=== PATIENT | female | born 1990 | race Caucasian/White ===

== ENCOUNTER → 2020-12-02 08:45 | Outpatient (CLI) | payer OTHER, SELFPAY ==
[2020-12-02 09:56] LABS: Add Manual Diff / Slide Review NO; Basophils Absolute Auto 0 /uL (0-100); Basophils Percent Auto 0.5 % (0-2); Eosinophils Absolute Auto 100 /uL (0-450); Eosinophils Percent Auto 0.6 % (2-4); Hematocrit 40.5 % (36-46); Hemoglobin 13.3 g/dL (12.0-16.0); Lymphocytes Absolute Auto 1800 /uL (1100-4500); Lymphocytes Percent Auto 22.4 % (25-40); Mean Corpuscular HGB Conc 32.9 % (30-36); Mean Corpuscular Hemoglobin 31.6 PG (26-34); Mean Corpuscular Volume 95.8 fL (80-100); Monocytes Absolute Auto 500 /uL (0-900); Monocytes Percent Auto 6.1 % (3-14); Neutrophils Absolute Auto 5700 /uL (1500-7000); Neutrophils Percent Auto 70.4 % (50-75); Platelet Count 303 X10^3/uL (150-400); Red Blood Cell Count 4.22 X10^6/uL (4.0-5.2); Red Cell Distribution Width 13.7 % (11.6-14.8); White Blood Cell Count 8.1 X10^3/uL (4.5-11.0)
[2020-12-02 10:07] LABS: Alanine Aminotransferase 33 IU/L (<35); Albumin 4.4 g/dL (3.5-5.0); Albumin Globulin Ratio 1.5 (1.0-2.8); Alkaline Phosphatase 74 U/L (38-126); Aspartate Aminotransferase 28 IU/L (14-36); BUN Creatinine Ratio 18.2 (6-22); Bilirubin Total 0.3 mg/dL (0.2-1.3); Blood Urea Nitrogen 12 mg/dL (7-17); Calcium 9.1 mg/dL (8.4-10.2); Carbon Dioxide 27 mmol/L (22-32); Chloride 105 mmol/L (98-107); Cholesterol 150 mg/dL (140-199); Estimated Glomerular Filt Rate > 60.0 mL/min (>60); Glucose 103 mg/dL (70-100); HDL Cholesterol 67 mg/dL (40-60); HEMOLYSIS < 15 (0-50); LDL Cholesterol Calculated 59 mg/dL (<100); Potassium 4.2 mmol/L (3.4-5.1); Sodium 137 mmol/L (137-145); Total Protein 7.4 g/dL (6.3-8.2); Triglycerides 121 mg/dL (35-150)
== END ==
PROVIDERS: PCP Family Medicine; Referring Provider Registered Nurse; Visit Provider Registered Nurse
DX: Z30.41 Encounter for surveillance of contraceptive pills (principal); Z79.899 Other long term (current) drug therapy
CPT/HCPCS: 36415; 80053; 80061; 85025

== ENCOUNTER → 2021-11-06 07:31 | Outpatient (CLI) | payer OTHER, SELFPAY ==
--- NOTE | 2021-11-06 07:33 | DI.US.S_ITS ---
PROCEDURE: US PELVIC COMPLETE INDICATIONS: ABNORMAL MENSES AND INTENSE CRAMPING WITH MENSES. TECHNIQUE: Real-time scanning was performed of the pelvic organs, with image documentation. Additional endovaginal scanning was necessary due to incomplete visualization of the adnexal and endometrial structures by transabdominal scanning. COMPARISON: None. FINDINGS: Uterus: Uterus is anteverted and normal in size at 6.2 x 3.7 x 2.6 cm. The myometrium is heterogeneous. No cystic change. The endometrium measures 3 mm combined thickness. Trace fluid in the endometrial canal. No fibroids identified. There is somewhat prominent vasculature at the lower uterine segment/cervix. Ovaries: The right ovary measures 2.5 x 1.6 x 1.2 cm, with a calculated ovarian volume of 3 cc. The left ovary measures 2.1 x 1.9 x 1.1 cm, with a calculated ovarian volume of 2 cc. The ovaries have a normal sonographic appearance. Less than 12 follicles can be seen in each ovary. No adnexal masses are seen. Other: No pathologic free abdominal or pelvic fluid. IMPRESSION: 1. No endometrial thickening. Endometrium measures 3 mm. 2. The myometrial echotexture is heterogeneous. This finding is nonspecific but could be seen in adenomyosis. Consider pelvic MRI for further evaluation. 3. Ovaries are within normal limits. We strive to produce accurate, complete, and clear reports of imaging services. To assist us in improving patient care, this report was composed using standard report templates and voice recognition software. Therefore, it may contain abnormal punctuation, insertions and/or omissions. Occasional wrong-word or sound-alike substitutions may occur. Though we review the report and make efforts to correct it, we do recommend that the report be read carefully in proper context to recognize any text inaccuracies. Dictated by: Manuelito Zhang M.D. on 11/06/2021 at 9:59 Approved by: Manuelito Zhang M.D. on 11/06/2021 at 10:17
[2021-11-06 14:39] LABS: Appearance Urine UA CLEAR; Bilirubin Urine UA NEGATIVE (NEGATIVE); Color Urine UA YELLOW; Glucose Urine UA NEGATIVE (Negative); Ketones Urine UA NEGATIVE (NEGATIVE); Leukocyte Esterase Urine UA NEGATIVE (NEGATIVE); Nitrite Urine UA NEGATIVE (Negative); Occult Blood Urine UA NEGATIVE (Negative); Protein Urine UA NEGATIVE (Negative); Urobilinogen Urine UA 0.2 E.U./dL (0.2)
[2021-11-06 14:51] LABS: Bacteria Urine None Seen; Culture Indicated Urine Cult Not Indicated; Mucus Urine 1+ (Negative); RBC Urine None Seen (0-5/HPF); WBC Urine None Seen (0-5/HPF)
== END ==
PROVIDERS: PCP Family Medicine; Referring Provider Family Medicine; Visit Provider Family Medicine
DX: N92.6 Irregular menstruation, unspecified (principal); N94.6 Dysmenorrhea, unspecified; R10.9 Unspecified abdominal pain
CPT/HCPCS: 76830; 76856; 81001

== ENCOUNTER → 2022-12-29 15:49 | Outpatient (CLI) | payer OTHER, SELFPAY | PROVIDERS: PCP Family Medicine; Visit Provider Nurse Practitioner Family | DX: N89.8 Other specified noninflammatory disorders of vagina (principal) | CPT/HCPCS: 87210 ==

== ENCOUNTER → 2023-04-01 07:37 | Outpatient (CLI) | payer OTHER, SELFPAY ==
--- NOTE | 2023-04-01 08:45 | DI.US.S_ITS ---
PROCEDURE: US PELVIC COMPLETE INDICATIONS: IUD placement TECHNIQUE: Real-time scanning was performed of the pelvic organs, with image documentation. Additional endovaginal scanning was necessary due to incomplete visualization of the adnexal and endometrial structures by transabdominal scanning. COMPARISON: [facility], , US PELVIC COMPLETE, 11/06/2021, 8:11. FINDINGS: Uterus: Uterus is retroverted and normal in size at 5.3 x 3.1 x 3.9 cm. The myometrium is homogeneous. The endometrium measures 2 mm combined thickness. IUD with endometrium. Ovaries: The right ovary measures 1.7 x 2.1 x 2.5 cm, with a calculated ovarian volume of 4.5 cc. The left ovary measures 2.5 x 2.3 x 3.6 cm, with a calculated ovarian volume of 10.8 cc. The ovaries have a normal sonographic appearance. Less than 12 follicles can be seen in each ovary. No adnexal masses are seen. Other: No pathologic free abdominal or pelvic fluid. IMPRESSION: IUD appears appropriately positioned within the endometrial cavity. We strive to produce accurate, complete, and clear reports of imaging services. To assist us in improving patient care, this report was composed using standard report templates and voice recognition software. Therefore, it may contain abnormal punctuation, insertions and/or omissions. Occasional wrong-word or sound-alike substitutions may occur. Though we review the report and make efforts to correct it, we do recommend that the report be read carefully in proper context to recognize any text inaccuracies. Dictated by: Frank Win M.D. on 04/02/2023 at 9:02 Approved by: Frank Win M.D. on 04/02/2023 at 9:05
== END ==
PROVIDERS: PCP Family Medicine; Referring Provider Obstetrics & Gynecology; Visit Provider Obstetrics & Gynecology
DX: Z97.5 Presence of (intrauterine) contraceptive device (principal)
CPT/HCPCS: 76830; 76856

== ENCOUNTER → 2023-08-04 13:26 | Outpatient (CLI) | payer OTHER, SELFPAY ==
--- NOTE | 2023-08-04 13:27 | DI.RAD.S_ITS ---
PROCEDURE: XR FOOT RT MIN 3V INDICATIONS: Heel pain TECHNIQUE: 3 views of the foot were acquired. COMPARISON: None. FINDINGS: Bones: No acute fracture. Normal alignment on nonweightbearing view. Joint spaces are maintained. Soft tissues: No tibiotalar joint effusion. Achilles tendon appears normal. No soft tissue swelling or radiopaque foreign body. Tiny plantar calcaneal enthesophyte. IMPRESSION: 1. No acute fracture. 2. Tiny plantar calcaneal enthesophyte. Dictated by: Dionne Trimble M.D. on 08/04/2023 at 15:46 Approved by: Dionne Trimble M.D. on 08/04/2023 at 16:56
== END ==
PROVIDERS: PCP Family Medicine; Referring Provider Nurse Practitioner Family; Visit Provider Nurse Practitioner Family
DX: M77.31 Calcaneal spur, right foot (principal)
CPT/HCPCS: 73630

== ENCOUNTER 2023-11-25 17:49 | Emergency (ER) | payer OTHER, SELFPAY ==
[2023-11-25 17:54] VITALS: BP 175/99; PULSE 78; RESP 18; TEMP 36.6; O2SAT 100; BMI 34.7
--- NOTE | 2023-11-25 17:59 | DI.RAD.S_ITS ---
PROCEDURE: XR CHEST 1V INDICATIONS: chest pain TECHNIQUE: One view of the chest was acquired. COMPARISON: None. FINDINGS: Surgical changes and devices: None. Lungs and pleura: Lungs are clear. No pleural effusions or pneumothorax. Mediastinum: Mediastinal contours appear normal. Heart size is normal. Bones and chest wall: No suspicious bony lesions. Overlying soft tissues appear unremarkable. IMPRESSION: No acute cardiopulmonary abnormality is seen. Dictated by: Frank Win M.D. on 11/25/2023 at 18:38 Approved by: Frank Win M.D. on 11/25/2023 at 18:38
[2023-11-25] MEDS: ASPIRIN 81 MG CHEW TAB 324 MG PO (18:06)
[2023-11-25 18:21] LABS: Add Manual Diff / Slide Review NO; Basophils Absolute Auto 100 /uL (0-100); Basophils Percent Auto 1.2 % (0-2); Eosinophils Absolute Auto 100 /uL (0-450); Eosinophils Percent Auto 0.7 % (2-4); Hematocrit 40.7 % (36-46); Hemoglobin 13.8 g/dL (12.0-16.0); Lymphocytes Absolute Auto 3600 /uL (1100-4500); Lymphocytes Percent Auto 31.9 % (25-40); Mean Corpuscular HGB Conc 33.8 % (30-36); Mean Corpuscular Hemoglobin 32.7 PG (26-34); Mean Corpuscular Volume 96.7 fL (80-100); Monocytes Absolute Auto 900 /uL (0-900); Monocytes Percent Auto 8.4 % (3-14); Neutrophils Absolute Auto 6500 /uL (1500-7000); Neutrophils Percent Auto 57.8 % (50-75); Platelet Count 306 X10^3/uL (150-400); Red Cell Distribution Width 13.8 % (11.6-14.8); White Blood Cell Count 11.2 X10^3/uL (4.5-11.0)
[2023-11-25 18:32] LABS: INR 0.9 (0.9-1.3); Prothrombin Time 10.8 SECONDS (9.4-12.5)
[2023-11-25 18:34] LABS: PTT Partial Thromboplastin Tim 29 SECONDS (25.1-36.5)
[2023-11-25 18:41] LABS: Alanine Aminotransferase 37 IU/L (<35); Albumin 4.7 g/dL (3.5-5.0); Albumin Globulin Ratio 1.4 (1.0-2.8); Alkaline Phosphatase 81 U/L (38-126); Aspartate Aminotransferase 31 IU/L (14-36); BUN Creatinine Ratio 22.7 (6-22); Bilirubin Total 0.6 mg/dL (0.2-1.3); Blood Urea Nitrogen 17 mg/dL (7-17); Calcium 9.9 mg/dL (8.4-10.2); Carbon Dioxide 25 mmol/L (22-32); Chloride 101 mmol/L (98-107); Creatine Kinase 103 U/L (30-135); Estimated Glomerular Filt Rate > 60 mL/min (>60); Globulin 3.3 g/dL (1.7-4.1); Glucose 97 mg/dL (70-100); HEMOLYSIS < 15 (0-50); Lipase 76 U/L (23-300); Magnesium 1.9 mg/dL (1.6-2.3); Potassium 4.1 mmol/L (3.4-5.1); Sodium 136 mmol/L (137-145)
[2023-11-25 18:52] LABS: Troponin I < 0.012 ng/mL (0.01-0.034)
[2023-11-25 19:47] VITALS: BP 146/91; PULSE 79; RESP 16; O2SAT 99
--- NOTE | 2023-11-25 19:52 | ED_ITS ---
HPI - Chest Pain General Chief Complaint: Chest Pain Stated Complaint: chest pain, sent by [facility] Time Seen by Provider: 11/25/23 19:44 Source: patient Mode of arrival: Ambulatory Limitations: no limitations History of Present Illness HPI narrative: 32-year-old female presents for 1 week of central chest pain. Pain is constant with intermittent worsening, does not radiate. Patient also endorsing intermittent shortness of breath and fatigue when these episodes occur. Denies known family history of heart disease, denies known family history of blood clots. Denies recent travel or leg swelling, uses Mirena IUD for control. Related Data Home Medications Medication Instructions Recorded Confirmed levonorgestrel 21 mcg/24 hours (8 intrauterine 12/29/22 11/25/23 yrs) 52 mg intrauterine device (Mirena) Allergies Allergy/AdvReac Type Severity Reaction Status Date / Time venom-honey bee Allergy Unknown Verified 11/25/23 17:11 [BEE VENOM (HONEY BEE)] oxycodone [OXYCODONE] AdvReac Intermediate syncope Verified 11/25/23 17:11 cyclobenzaprine AdvReac Mild vomiting Verified 11/25/23 17:11 [CYCLOBENZAPRINE] morphine [MORPHINE] AdvReac Mild gi upset Verified 11/25/23 17:11 Review of Systems Review of Systems Narrative: Negative except as noted above Patient History Medical History Painful menstrual periods Tobacco use disorder, mild, in early remission Impaired fasting glucose Family History Brother Age: 31 Type 1 diabetes Mother Age: 54 Type 1 diabetes Social History Smoking Status: Current every day smoker Smoking Status: Current every day smoker tobacco type: cigarettes alcohol intake frequency: a few times a week Substance Use Type: does not use Exam Initial Vital Signs Initial Vital Signs: Vital Signs Temperature 98 F 11/25/23 17:54 Pulse Rate 78 11/25/23 17:54 Respiratory Rate 18 11/25/23 17:54 Blood Pressure 175/99 H 11/25/23 17:54 Pulse Oximetry 100 11/25/23 17:54 Oxygen Delivery Method Room Air 11/25/23 17:54 Const: Awake, alert, no acute distress, nontoxic appearing Cardiac: regular rate, regular rhythm RESP: unlabored, clear bilaterally, no wheezing GI: Atraumatic, soft, nontender, nondistended, no rebound, no guarding MSK: Atraumatic, full range of motion, pulses equal Skin: Warm, Dry, intact, no rashes Neuro: AO x3, CN II-XII grossly intact, moves all extremities Psych: affect normal, mood normal, not suicidal, not homicidal Course Orders Ordered: Discontinued Medications Aspirin (Aspirin 81 Mg Chew Tab) 324 mg PO NOW ONE Stop: 11/25/23 18:00 Last Admin: 11/25/23 18:06 Dose: 324 mg Documented By: MPO Vital Signs Vital signs: Vital Signs - 8 hr 11/25/23 17:54 11/25/23 19:47 11/25/23 19:47 Temperature 98 F Pulse Rate 78 79 Respiratory Rate 18 16 Blood Pressure 175/99 H 146/91 H Pulse Oximetry 100 99 Oxygen Delivery Method Room Air Room Air 11/25/23 20:00 11/25/23 20:00 11/25/23 20:30 Temperature Pulse Rate 67 Respiratory Rate 15 Blood Pressure 133/93 H 136/91 H Pulse Oximetry 100 Oxygen Delivery Method Room Air 11/25/23 20:30 11/25/23 20:57 Temperature 98.5 F Pulse Rate 71 Respiratory Rate 16 Blood Pressure Pulse Oximetry 98 Oxygen Delivery Method Room Air MDM - Chest Pain Differential Diagnosis Differential diagnosis: Likely atypical chest pain and chest pain Lab Data 11/25/23 18:10 11/25/23 18:10 Labs: Lab Results 11/25/23 Range/Units 18:10 WBC 11.2 H (4.5-11.0) X10^3/uL RBC 4.20 (4.0-5.2) X10^6/uL Hgb 13.8 (12.0-16.0) g/dL Hct 40.7 (36-46) % MCV 96.7 (80-100) fL MCH 32.7 (26-34) PG MCHC 33.8 (30-36) % RDW 13.8 (11.6-14.8) % Plt Count 306 (150-400) X10^3/uL Neut % (Auto) 57.8 (50-75) % Lymph % (Auto) 31.9 (25-40) % [place] % (Auto) 8.4 (3-14) % Eos % (Auto) 0.7 L (2-4) % Baso % (Auto) 1.2 (0-2) % Neut # (Auto) 6500 (3841-7399) /uL Lymph # (Auto) 3600 (2463-2918) /uL [place] # (Auto) 900 (0-900) /uL Eos # (Auto) 100 (0-450) /uL Baso # (Auto) 100 (0-100) /uL PT 10.8 (9.4-12.5) SECONDS INR 0.9 (0.9-1.3) APTT 29 (25.1-36.5) SECONDS Sodium 136 L (137-145) mmol/L Potassium 4.1 (3.4-5.1) mmol/L Chloride 101 (98-107) mmol/L Carbon Dioxide 25 (22-32) mmol/L BUN 17 (7-17) mg/dL Creatinine 0.75 (0.52-1.04) mg/dL Estimated GFR > 60 (>60) mL/min BUN/Creatinine Ratio 22.7 H (6-22) Glucose 97 (70-100) mg/dL Calcium 9.9 (8.4-10.2) mg/dL Magnesium 1.9 (1.6-2.3) mg/dL Total Bilirubin 0.6 (0.2-1.3) mg/dL AST 31 (14-36) IU/L ALT 37 H (<35) IU/L Alkaline Phosphatase 81 (38-126) U/L Total Creatine Kinase 103 (30-135) U/L Troponin I < 0.012 (0.01-0.034) ng/mL Total Protein 8.0 (6.3-8.2) g/dL Albumin 4.7 (3.5-5.0) g/dL Globulin 3.3 (1.7-4.1) g/dL Albumin/Globulin Ratio 1.4 (1.0-2.8) Lipase 76 (23-300) U/L ECG Data Interpretation: Normal sinus rhythm, normal axis, normal IN interval, no ST T wave changes, no STEMI MDM Narrative Medical decision making narrative: Well-appearing patient with 1 week of symptoms. Physical exam is unremarkable, EKG sinus rhythm without concerning findings. Laboratory work shows no acute abnormalities, troponin is undetectable. PERC score negative. Chest x-ray negative for acute process. Patient advised of all lab and imaging findings, counseled close follow up with PCP if she continues to experience symptoms. Discharge Plan Departure Patient Disposition: Home Clinical Impression: Chest pain Instructions: DI for Chest Pain Prescriptions: No Action Mirena 21 mcg/24 hours (8 yrs) 52 mg intrauterine device intrauterine Referrals: Yasmin Hernandez DO [Primary Care Provider] - Stand Alone Forms: Patient Portal/API
[2023-11-25 20:00] VITALS: BP 133/93; PULSE 67; RESP 15; O2SAT 100
[2023-11-25 20:30] VITALS: BP 136/91; PULSE 71; RESP 16; O2SAT 98
[2023-11-25 20:57] VITALS: TEMP 36.9
== END 2023-11-25 21:07 | disposition home or self-care (01) ==
PROVIDERS: Emergency Medicine; Emergency Provider Emergency Medicine; PCP Family Medicine
DX: R07.9 Chest pain, unspecified (principal); R79.89 Other specified abnormal findings of blood chemistry
CPT/HCPCS: 36415; 71045; 80053; 82550; 83690; 83735; 84484; 85025; 85610; 85730; 93005; 99284

== ENCOUNTER → 2023-12-01 15:51 | Outpatient (CLI) | payer OTHER, SELFPAY ==
[2023-12-01 17:56] LABS: Add Manual Diff / Slide Review NO; Basophils Absolute Auto 0 /uL (0-100); Basophils Percent Auto 0.5 % (0-2); Eosinophils Absolute Auto 100 /uL (0-450); Eosinophils Percent Auto 0.6 % (2-4); Hematocrit 40.7 % (36-46); Hemoglobin 13.8 g/dL (12.0-16.0); Lymphocytes Absolute Auto 2800 /uL (1100-4500); Lymphocytes Percent Auto 30.3 % (25-40); Mean Corpuscular HGB Conc 33.9 % (30-36); Mean Corpuscular Hemoglobin 32.9 PG (26-34); Mean Corpuscular Volume 97.1 fL (80-100); Monocytes Absolute Auto 700 /uL (0-900); Monocytes Percent Auto 7.9 % (3-14); Neutrophils Absolute Auto 5500 /uL (1500-7000); Neutrophils Percent Auto 60.7 % (50-75); Platelet Count 306 X10^3/uL (150-400); Red Blood Cell Count 4.19 X10^6/uL (4.0-5.2); Red Cell Distribution Width 12.9 % (11.6-14.8); White Blood Cell Count 9.1 X10^3/uL (4.5-11.0)
[2023-12-01 18:56] LABS: TSH w/ Reflex to FT4 1.12 uIU/mL (0.47-4.68)
== END ==
PROVIDERS: PCP Family Medicine; Referring Provider Physician Assistant; Visit Provider Physician Assistant
DX: R07.9 Chest pain, unspecified (principal)
CPT/HCPCS: 36415; 84443; 85025

== ENCOUNTER 2024-06-04 09:36 | Emergency (ER) | payer OTHER, SELFPAY ==
[2024-06-04] VITALS (10 sets, daily range): BP systolic 131–158; BP diastolic 78–105; PULSE 68–96; RESP 18; TEMP 37; O2SAT 97–100; BMI 31.3
[2024-06-04 10:13] LABS: Appearance Urine UA CLEAR; Bilirubin Urine UA 1+ (NEGATIVE); Color Urine UA YELLOW; Glucose Urine UA NEGATIVE (Negative); Ketones Urine UA 3+ (NEGATIVE); Leukocyte Esterase Urine UA NEGATIVE (NEGATIVE); Nitrite Urine UA NEGATIVE (Negative); Occult Blood Urine UA 1+ (Negative); Protein Urine UA 2+ (Negative); Specific Gravity Urine UA >=1.030 (1.000-1.035)
[2024-06-04 10:14] LABS: pH Urine UA 5.5 (4.5-8.0)
--- NOTE | 2024-06-04 10:16 | ED.ABDPAIN ---
HPI - Abdominal Pain General Chief Complaint: Urogenital-Female Stated Complaint: Lower back pain Time Seen by Provider: 06/04/24 09:59 Source: patient Mode of arrival: Ambulatory History of Present Illness HPI narrative: Patient is a 33-year-old female with a past medical history of adenomyosis follows with Dr. Galindo, comes into the ED from home for evaluation of persistent and ongoing abdominal pain. Describes it as cramping in nature lower abdominal. States this is similar to her history of adenomyosis, states that she is supposed to see Dr. Galindo in next several days to discuss possible hysterectomy for her persistent lower abdominal pain cramping secondary to her history of adenomyosis. She states that she has having an exacerbation of her lower abdominal pain, states that she has been taking [id number] medication without much relief, she states that due to the fact that this pain has been persistent/longer than normal she decided come into the ED for further evaluation treatment. She denies any other symptoms such as headache visual disturbances chest pain shortness of breath fever chills nausea vomiting or any other GI/ symptoms time. She has not on any blood thinners no trauma no falls. She denies any hematuria dysuria. Related Data Home Medications Medication Instructions Recorded Confirmed levonorgestrel 21 mcg/24 hours (8 intrauterine 12/29/12/01/23 yrs) 52 mg intrauterine device (Mirena) Previous Rx's Medication Instructions Recorded naproxen 500 mg tablet 500 mg PO BID PRN pain #40 tabs 12/01/23 nicotine 7 mg/24 hr daily 1 patch transdermal Q24H #14 ea 12/31/23 transdermal patch (Nicoderm CQ) Allergies Allergy/AdvReac Type Severity Reaction Status Date / Time venom-honey bee Allergy Unknown Verified 12/01/23 15:14 [BEE VENOM (HONEY BEE)] oxycodone [OXYCODONE] AdvReac Intermediate syncope Verified 12/01/23 15:14 cyclobenzaprine AdvReac Mild vomiting Verified 12/01/23 15:14 [CYCLOBENZAPRINE] morphine [MORPHINE] AdvReac Mild gi upset Verified 12/01/23 15:14 Review of Systems Review of Systems Narrative: HEENT: Denies headache, eye drainage, eye irritation, head trauma, sore throat, voice change Cardiovascular: Denies any chest pain, palpitations, shortness of breath, tachycardia Respiratory: Denies any shortness of breath, cough, wheeze, stridor GI/: Denies any, nausea, vomiting, diarrhea, bright red blood per rectum, melanotic stools, urinary frequency, urinary retention, dysuria, hematuria, positive for abdominal pain MSK: Denies any joint pain, muscle pains, swelling Skin: Denies any rashes, lesions, discoloration Neuro: Denies any headache, lightheadedness, dizziness, fainting, weakness Psych: Denies SI/HI Patient History Medical History Painful menstrual periods Tobacco use disorder, mild, in early remission Impaired fasting glucose Family History Brother Age: 31 Type 1 diabetes Mother Age: 54 Type 1 diabetes Social History Smoking Status: Current every day smoker Smoking Status: Current every day smoker tobacco type: cigarettes alcohol intake frequency: a few times a week Substance Use Type: does not use Exam Narrative Exam Narrative: General: Cooperative, comfortable, well-developed, not in acute distress HEENT: Normocephalic, atraumatic, PERRLA, normal sclera, eyelids normal, Neck: Active full range of motion, atraumatic Chest: Normal to inspection, negative crepitus, no overlying erythema ecchymosis Respiratory: Normal respiratory effort, not in acute respiratory distress, clear to auscultation bilaterally negative cough, wheeze, tachypnea, rhonchi, rales Cardiology: Regular rate rhythm negative gallop, murmur, rubs GI/: Normal to inspection, soft, nonrigid, no tenderness to palpation, exam deferred MSK: Full range of active range of motion of all 4 extremities, atraumatic Skin: No rashes lesions noted Neuro: Alert awake oriented x3, moves all 4 extremities spontaneously, cranial nerves intact, able to answer all questions appropriately follows commands appropriately Psych: Cooperative, negative suicidal or homicidal ideations Initial Vital Signs Initial Vital Signs: Vital Signs Pulse Rate 96 H 06/04/24 09:52 Blood Pressure 158/105 H 06/04/24 09:52 Pulse Oximetry 98 06/04/24 09:52 Course Orders Ordered: Discontinued Medications Sodium Chloride (Normal Saline 0.9%) 1,000 mls @ 1,000 mls/hr IV BOLUS ONE Stop: 06/04/24 11:15 Last Infusion: 06/04/24 11:51 Dose: Infused Documented By: Admin: 06/04/24 10:36 Dose: 1,000 mls/hr Documented By: CORBY Ketorolac Tromethamine (Ketorolac 30 Mg/Ml Vial) 30 mg IV NOW ONE Stop: 06/04/24 10:17 Last Admin: 06/04/24 10:35 Dose: 30 mg Documented By: CORBY Ondansetron HCl (Ondansetron 4 Mg/2 Ml Inj) 4 mg IV NOW ONE Stop: 06/04/24 10:17 Last Admin: 06/04/24 10:36 Dose: 4 mg Documented By: CORBY Vital Signs Vital signs: Vital Signs - 8 hr 06/04/24 09:52 06/04/24 09:52 06/04/24 09:53 Temperature Pulse Rate 96 H 90 Respiratory Rate Blood Pressure 158/105 H Pulse Oximetry 98 98 Oxygen Delivery Method 06/04/24 09:53 06/04/24 09:55 Temperature 98.6 F Pulse Rate 96 H Respiratory Rate 18 Blood Pressure 151/97 H 158/105 H Pulse Oximetry 98 Oxygen Delivery Method Room Air MDM - Abdominal Pain Differential Diagnosis Differential diagnosis: Likely abdominal pain, acute appendicitis, constipation, diverticulitis and other (Endometriosis) Condition is:: Well Controlled Medical Records Attestation: I reviewed the patient's medical records. Lab Data Attestation: I reviewed the patient's lab results. 06/04/24 10:31 06/04/24 10:31 Labs: Lab Results 06/04/24 06/04/24 Range/Units 09:47 10:31 WBC 8.7 (4.5-11.0) X10^3/uL RBC 4.59 (4.0-5.2) X10^6/uL Hgb 15.4 (12.0-16.0) g/dL Hct 44.8 (36-46) % MCV 97.6 (80-100) fL MCH 33.5 (26-34) PG MCHC 34.3 (30-36) % RDW 13.7 (11.6-14.8) % Plt Count 292 (150-400) X10^3/uL Neut % (Auto) 77.0 H (50-75) % Lymph % (Auto) 15.2 L (25-40) % [place] % (Auto) 6.9 (3-14) % Eos % (Auto) 0.5 L (2-4) % Baso % (Auto) 0.4 (0-2) % Neut # (Auto) 6700 (2753-2350) /uL Lymph # (Auto) 1300 (9728-7745) /uL [place] # (Auto) 600 (0-900) /uL Eos # (Auto) 0 (0-450) /uL Baso # (Auto) 0 (0-100) /uL Sodium 138 (137-145) mmol/L Potassium 4.6 (3.4-5.1) mmol/L Chloride 108 H (98-107) mmol/L Carbon Dioxide 20 L (22-32) mmol/L BUN 16 (7-17) mg/dL Creatinine 0.80 (0.52-1.04) mg/dL Estimated GFR > 60 (>60) mL/min BUN/Creatinine Ratio 20.0 (6-22) Glucose 103 H (70-100) mg/dL Calcium 9.7 (8.4-10.2) mg/dL Magnesium 2.1 (1.6-2.3) mg/dL Total Bilirubin 0.8 (0.2-1.3) mg/dL AST 27 (14-36) IU/L ALT 35 H (<35) IU/L Alkaline Phosphatase 95 (38-126) U/L Total Protein 7.9 (6.3-8.2) g/dL Albumin 4.8 (3.5-5.0) g/dL Globulin 3.1 (1.7-4.1) g/dL Albumin/Globulin Ratio 1.5 (1.0-2.8) Lipase 68 (23-300) U/L HCG, Quant < 2.39 mIU/mL Urine Color Yellow Urine Appearance Clear Urine pH 5.5 (4.5-8.0) Ur Specific [place] >=1.030 H (1.000-1.035) Urine Protein 2+ H (Negative) Urine Glucose (UA) Negative (Negative) g/dL Urine Ketones 3+ H (NEGATIVE) Urine Occult Blood 1+ H (Negative) Urine Nitrate Negative (Negative) Urine Bilirubin 1+ H (NEGATIVE) Ur Bilirubin Confirm TNP Urine Urobilinogen 1.0 (0.2) E.U./dL Ur Leukocyte Esterase Negative (NEGATIVE) Urine RBC 5-10/hpf H (0-5/HPF) Urine WBC 1-5/hpf (0-5/HPF) Ur Squamous Epith Cells 1-5 /hpf (0-5/HPF) Urine Bacteria Occasional (0-1) (None) Ur Culture Indicated? Cult not indicated Vol Urine Centrifuged Low vol <1ml unspun A MDM Narrative Medical decision making narrative: Patient is a 33-year-old female with past medical history of adenomyosis currently being treated and evaluated by Dr. Antonio SANFORDGYKira. Patient coming in with exacerbation of her chronic lower abdominal pain secondary to this. Lab work and imaging unremarkable at this time, patient with improved symptoms after administration of IV analgesics here in the emergency department. Patient's exam as well as CT scan more consistent with patient's known history of adenomyosis, patient does have an appointment with her OBGYN next several days, informed patient of need for follow-up with OBGYN for continued evaluation treatment of her symptoms. Patient was given strict return precautions, she verbalized understanding of this and agrees to being discharged home with outpatient follow-up Discharge Plan Departure Patient Disposition: Home Clinical Impression: Abdominal pain Qualifiers: Abdominal location: lower abdomen, unspecified Qualified Code(s): R10.30 - Lower abdominal pain, unspecified Activity Restrictions/Additional Instructions: please follow-up with your OBGYN or your continued evaluation treatment of your adenomyosis, as well as further evaluation and treatment of your symptoms Please read the discharge instructions sheet carefully and bring all papers to all doctor follow-up visits, as it may contain information that your doctor may want to see. Disease processes change and evolve, if your symptoms worsen or if you develop any new symptoms that are concerning to you please return for evaluation. Your evaluation today does not show any evidence of any life-threatening/serious illnesses requiring admission to the hospital or surgery. Please follow-up with your doctor for re-evaluation in approximately 1 day. Seek immediate medical attention for any worrisome symptoms. Prescriptions: No Action Mirena 21 mcg/24 hours (8 yrs) 52 mg intrauterine device intrauterine naproxen 500 mg tablet 500 mg PO BID PRN (Reason: pain) Qty: 40 0RF nicotine [Nicoderm CQ] 7 mg/24 hr patch 24 hour 1 patch transdermal Q24H Qty: 14 1RF Referrals: Yasmin Hernandez DO [Primary Care Provider] - Stand Alone Forms: Patient Portal/API
--- NOTE | 2024-06-04 10:17 | DI.CT.S_ITS ---
PROCEDURE: CT ABDOMEN PELVIS W CON INDICATIONS: lower abd pain , hx of adenmyosis TECHNIQUE: After the administration of intravenous contrast, axial sections acquired from the lung bases to the pubic symphysis. Coronal and sagittal reformats were performed. For radiation dose reduction, the following was used: automated exposure control, adjustment of mA and/or kV according to patient size. COMPARISON: None. FINDINGS: Image quality: Diagnostic. Lower Chest: No significant findings. ABDOMEN: Liver: No solid mass. Mild hepatic steatosis is seen. Gallbladder: No radiopaque gallstones or gallbladder wall thickening. Biliary ducts: No biliary dilation. Pancreas: No ductal dilation. Spleen: Size is within normal limits. Adrenal Glands: No adrenal nodules. Kidneys and Ureters: No hydronephrosis. No solid mass. No complex renal cystic lesion which requires follow up. Stomach and Bowel: There is no bowel obstruction. No gastric or small bowel wall thickening. Appendix is visualized in right lower quadrant and is within normal limits. Questionable mild colonic wall thickening with narrowing of the lumen without significant pericolonic fat stranding. No abscess collection. Peritoneum: No abnormal intraperitoneal fluid. No free air. Ventral Wall: No significant ventral hernia. Abdominal Nodes: No retroperitoneal or mesenteric adenopathy by size criteria. Vessels: Aorta and inferior vena cava are normal in size. PELVIS: Pelvic Organs: Intrauterine device is noted in its central endometrial location.. Bladder: No bladder wall thickening, accounting for underdistention. Pelvic Nodes: No enlarged lymph nodes. Miscellaneous: No inguinal hernias are seen. Bones: No aggressive osseous abnormality. IMPRESSION: 1. Finding may indicate mild colitis versus under distension of the colon. No bowel obstruction. Normal appendix. No free fluid or free air. 2. Intrauterine device in situ. No gross abnormality is seen in uterus and bilateral ovaries. Dictated by: Harris Diaz M.D. on 06/04/2024 at 11:26 Approved by: Harris Diaz M.D. on 06/04/2024 at 11:29
[2024-06-04 10:28] LABS: RBC Urine 5-10/HPF (0-5/HPF); Urine Volume Low Vol <1mL unspun
[2024-06-04 10:29] LABS: Bacteria Urine Occasional (0-1); Culture Indicated Urine Cult Not Indicated; Squamous Epithelial Cell Urine 1-5 /HPF (0-5/HPF); WBC Urine 1-5/HPF (0-5/HPF)
[2024-06-04] MEDS: KETOROLAC 30 MG/ML VIAL IV (10:35)
[2024-06-04] MEDS: ONDANSETRON 4 MG/2 ML INJ IV (10:36)
[2024-06-04] MEDS: SODIUM CHLORIDE 0.9% 1,000 ML 1000 ML IV (10:36)
[2024-06-04 10:39] LABS: Add Manual Diff / Slide Review NO; Basophils Absolute Auto 0 /uL (0-100); Basophils Percent Auto 0.4 % (0-2); Eosinophils Absolute Auto 0 /uL (0-450); Eosinophils Percent Auto 0.5 % (2-4); Hematocrit 44.8 % (36-46); Hemoglobin 15.4 g/dL (12.0-16.0); Lymphocytes Absolute Auto 1300 /uL (1100-4500); Lymphocytes Percent Auto 15.2 % (25-40); Mean Corpuscular HGB Conc 34.3 % (30-36); Mean Corpuscular Hemoglobin 33.5 PG (26-34); Mean Corpuscular Volume 97.6 fL (80-100); Monocytes Absolute Auto 600 /uL (0-900); Monocytes Percent Auto 6.9 % (3-14); Neutrophils Absolute Auto 6700 /uL (1500-7000); Platelet Count 292 X10^3/uL (150-400); Red Blood Cell Count 4.59 X10^6/uL (4.0-5.2); Red Cell Distribution Width 13.7 % (11.6-14.8); White Blood Cell Count 8.7 X10^3/uL (4.5-11.0)
--- NOTE | 2024-06-04 10:45 | PC.NURSE ---
Very little urine produced, therefore sent to lab for UA/Hcg. POC's cancelled.
[2024-06-04 10:51] LABS: Alanine Aminotransferase 35 IU/L (<35); Albumin 4.8 g/dL (3.5-5.0); Albumin Globulin Ratio 1.5 (1.0-2.8); Alkaline Phosphatase 95 U/L (38-126); Aspartate Aminotransferase 27 IU/L (14-36); Bilirubin Total 0.8 mg/dL (0.2-1.3); Blood Urea Nitrogen 16 mg/dL (7-17); Calcium 9.7 mg/dL (8.4-10.2); Carbon Dioxide 20 mmol/L (22-32); Chloride 108 mmol/L (98-107); Estimated Glomerular Filt Rate > 60 mL/min (>60); Globulin 3.1 g/dL (1.7-4.1); Glucose 103 mg/dL (70-100); HEMOLYSIS < 15 (0-50); Lipase 68 U/L (23-300); Magnesium 2.1 mg/dL (1.6-2.3); Potassium 4.6 mmol/L (3.4-5.1); Sodium 138 mmol/L (137-145); Total Protein 7.9 g/dL (6.3-8.2)
[2024-06-04 11:17] LABS: HCG Quantitative /Beta subunit < 2.39 mIU/mL
== END 2024-06-04 12:14 | disposition home or self-care (01) ==
PROVIDERS: Emergency Provider Student in an Organized Health Care Education/Training Program; PCP Family Medicine
DX: R10.30 Lower abdominal pain, unspecified (principal)
CPT/HCPCS: 36415; 74177; 80053; 81001; 83690; 83735; 84702; 85025; 96361; 96374; 96375; 99284; J1885; J2405; Q9967

== ENCOUNTER 2024-06-06 10:41 | Emergency (ER) | payer OTHER, SELFPAY ==
[2024-06-06 10:49] VITALS: BP 161/99; PULSE 84; RESP 16; TEMP 36.2; O2SAT 100; BMI 32.9
--- NOTE | 2024-06-06 11:07 | ED.BACK ---
HPI - Back Pain/Injury <Adelaide Dong PA-C - Last Filed: 06/06/24 13:31> General Chief Complaint: Back Pain/Injury Stated Complaint: low back pain Time Seen by Provider: 06/06/24 11:07 Source: patient History of Present Illness HPI Narrative: 33-year-old female with past medical history adenomyosis, fibromyalgia presents to the ED with 6 days of pelvic cramping and lower back pain. Patient endorses a history of endometriosis which has thus far been managed with a Mirena IUD, NSAIDs, ice and heat packs. Patient states that this time around, the adenomyosis cramping has been worse and is also somewhat different. Patient states that in addition to the pelvic cramping, this time she is experiencing lower back pain which radiates down the back of bilateral legs. Patient denies any trauma, back injury. Patient denies history of prior back issues. Patient denies dysuria. Does endorse urinary frequency, states that she feels like she needs to urinate, however urinates only a small amount each time. Denies urinary hesitancy, urinary incontinence, bowel incontinence, saddle paresthesias. No numbness, weakness. Patient does endorse intermittent tingling in her legs. Endorses nausea, denies vomiting. No fever, chills. No history of frequent UTIs. Patient was seen in the ED for the same complaint 2 days ago, treated with ketorolac and encouraged to follow-up with Dr. Charles who is her OBGYN. Has contacted Dr. Charles's office, is scheduled for an ultrasound for the end of this week. Patient is here today since her pain is unmanageable and patient feels that her back pain has not been adequately addressed, would like to ensure that there isn't a different etiology for the back pain. Related Data Home Medications Medication Instructions Recorded Confirmed levonorgestrel 21 mcg/24 hours (8 intrauterine 12/29/22 12/01/23 yrs) 52 mg intrauterine device (Mirena) Previous Rx's Medication Instructions Recorded naproxen 500 mg tablet 500 mg PO BID PRN pain #40 tabs 12/01/23 nicotine 7 mg/24 hr daily 1 patch transdermal Q24H #14 ea 12/31/23 transdermal patch (Nicoderm CQ) nitrofurantoin 100 mg PO Q12H 5 days #10 caps 06/06/24 monohydrate/macrocrystals 100 mg capsule (Macrobid) ondansetron 4 mg disintegrating 4 mg PO Q8H PRN nausea and 06/06/24 tablet vomiting #10 tabs tramadol 50 mg tablet 50 mg PO Q8H PRN pain 3 days #10 06/06/24 tabs Allergies Allergy/AdvReac Type Severity Reaction Status Date / Time venom-honey bee Allergy Unknown Verified 06/06/24 10:49 [BEE VENOM (HONEY BEE)] oxycodone [OXYCODONE] AdvReac Intermediate syncope Verified 06/06/24 10:49 cyclobenzaprine AdvReac Mild vomiting Verified 06/06/24 10:49 [CYCLOBENZAPRINE] morphine [MORPHINE] AdvReac Mild gi upset Verified 06/06/24 10:49 Review of Systems <Adelaide Dong PA-C - Last Filed: 06/06/24 13:31> Constitutional Constitutional: Denies chills, Denies fatigue, Denies fever(s), Denies frequent falls, Denies lethargy and Denies weakness Eyes Eyes: Denies change in vision, Denies eye discharge, Denies irritation and Denies loss of vision ENT Ears, Nose, Mouth, and Throat: Denies change in voice, Denies dizziness, Denies neck pain, Denies sore throat and Denies throat swelling Cardiovascular Cardiovascular: Denies chest pain, Denies irregular heart rhythm, Denies lightheadedness, Denies palpitations, Denies dyspnea, Denies dyspnea on exertion and Denies orthopnea Respiratory Respiratory: Denies cough, Denies dyspnea, Denies dyspnea on exertion and Denies wheezing Gastrointestinal Gastrointestinal: Denies abdominal pain, Denies change in bowel habits, Denies diarrhea, Denies nausea and Denies vomiting Genitourinary Genitourinary: Denies dysuria, Reports pelvic pain, Denies urinary incontinence, Denies urinary hesitancy and Reports urinary urgency Musculoskeletal Musculoskeletal: Reports back pain, Denies neck pain, Denies numbness, Reports radiating pain into limb and Reports tingling Integumentary/Breasts Skin/Breast: Denies pruritus, Denies erythema, Denies rash and Denies wounds Neurologic Neurologic: Denies behavioral changes, Denies confusion, Denies dizziness, Denies frequent falls, Denies loss of vision, Denies numbness, Reports tingling and Denies weakness Psychiatric Psychiatric: Denies anxiety, Denies behavioral changes, Denies confusion, Denies depression, Denies homicidal ideation and Denies suicidal ideation Endocrine Endocrine: Denies fatigue, Denies flushing and Denies palpitations Hematologic/Lymphatic Hematologic/Lymphatic: Denies easy bruising Allergic/Immunologic Allergic/Immunologic: Denies urticaria, Denies throat swelling and Denies wheezing Patient History <Adelaide Dong PA-C - Last Filed: 06/06/24 13:31> Medical History Painful menstrual periods Tobacco use disorder, mild, in early remission Impaired fasting glucose Family History Brother Age: 32 Type 1 diabetes Mother Age: 55 Type 1 diabetes Social History Smoking Status: Current every day smoker Smoking Status: Current every day smoker tobacco type: cigarettes alcohol intake frequency: holidays/special occasions only Substance Use Type: does not use Exam <Adelaide Dong PA-C - Last Filed: 06/06/24 13:31> Narrative Exam Narrative: Const General:?cooperative, healthy appearing and comfortable [facility] Head:?normal to inspection Ears:?hearing grossly normal bilaterally Nose:?external nose normal Face and sinus:?normal facial exam and sinuses nontender Mouth:?oral mucosae normal Throat:?posterior oropharynx normal Eyes General:?appearance normal, both eyes and all related structures Neck Neck:?normal visual inspection and no lymphadenopathy noted Resp Effort & Inspection:?normal respiratory effort Auscultation:?clear to auscultation bilaterally Cardio Rate:?regular rate Rhythm:?regular rhythm GI Abdomen is soft, nondistended. Mild tenderness to palpation in the lower quadrants. No CVA tenderness. Musculoskeletal There is some midline tenderness to palpation in the lumbar region, along with paraspinal tenderness. Neuro General:?patient alert, patient awake and patient oriented x3 Initial Vital Signs Initial Vital Signs: Vital Signs Temperature 97.2 F L 06/06/24 10:49 Pulse Rate 84 06/06/24 10:49 Respiratory Rate 16 06/06/24 10:49 Blood Pressure 161/99 H 06/06/24 10:49 Pulse Oximetry 100 06/06/24 10:49 Oxygen Delivery Method Room Air 06/06/24 10:49 <DO Shana Jones Last Filed: 06/07/24 07:56> Initial Vital Signs Initial Vital Signs: Vital Signs Temperature 97.2 F L 06/06/24 10:49 Pulse Rate 84 06/06/24 10:49 Respiratory Rate 16 06/06/24 10:49 Blood Pressure 161/99 H 06/06/24 10:49 Pulse Oximetry 100 06/06/24 10:49 Oxygen Delivery Method Room Air 06/06/24 10:49 Course <ERLIN Novak Last Filed: 06/06/24 13:31> Orders Ordered: Discontinued Medications Ketorolac Tromethamine (Ketorolac 30 Mg/Ml Vial) 15 mg IV NOW ONE Stop: 06/06/24 11:49 Last Admin: 06/06/24 12:10 Dose: Not Given Documented By: LANE Ketorolac Tromethamine (Ketorolac 30 Mg/Ml Vial) 15 mg IM NOW ONE Stop: 06/06/24 12:11 Last Admin: 06/06/24 12:20 Dose: 15 mg Documented By: SPF Vital Signs Vital signs: Vital Signs - 8 hr 06/06/24 10:49 Temperature 97.2 F L Pulse Rate 84 Respiratory Rate 16 Blood Pressure 161/99 H Pulse Oximetry 100 Oxygen Delivery Method Room Air <Phyllis Dejesus DO - Last Filed: 06/07/24 07:56> Orders Ordered: Discontinued Medications Ketorolac Tromethamine (Ketorolac 30 Mg/Ml Vial) 15 mg IV NOW ONE Stop: 06/06/24 11:49 Last Admin: 06/06/24 12:10 Dose: Not Given Documented By: SPF Ketorolac Tromethamine (Ketorolac 30 Mg/Ml Vial) 15 mg IM NOW ONE Stop: 06/06/24 12:11 Last Admin: 06/06/24 12:20 Dose: 15 mg Documented By: SPF Vital Signs Vital signs: Vital Signs - 8 hr 06/06/24 10:49 Temperature 97.2 F L Pulse Rate 84 Respiratory Rate 16 Blood Pressure 161/99 H Pulse Oximetry 100 Oxygen Delivery Method Room Air MDM - Back Pain/Injury <ERLIN Novak Last Filed: 06/06/24 13:31> Lab Data Labs: Lab Results 06/06/24 Range/Units 11:55 Urine RBC 0-1/hpf (0-5/HPF) Urine WBC 1-5/hpf (0-5/HPF) Ur Squamous Epith Cells 0-1 /hpf (0-5/HPF) Urine Bacteria Moderate (10-30) H (None) Urine Mucus 1+ H (Negative) Ur Culture Indicated? Specimen cultured Vol Urine Centrifuged 10ml (spun) Point of Care Testing Test Results Negative Urine Dip Bedside Urine Glucose Negative Bedside Urine Bilirubin + 1 Bedside Urine Ketone +++ 80 Urine Specific [place] 1.030 Bedside Urine Occult Blood - Negative Bedside Urine pH 6.0 Bedside Urine Protein + 30 Bedside Urine Leukocytes +/- 15 Esterase MDM Narrative Medical decision making narrative: 33-year-old female with past medical history adenomyosis, fibromyalgia presents to the ED with 6 days of pelvic cramping and lower back pain. Concern for UTI versus adenomyosis versus fracture/dislocation versus musculoskeletal sprain/strain versus other. Will obtain urine, lumbar spine x-ray. Will give Toradol for pain. Will reassess. X-ray without acute findings to explain patient's symptoms. UA positive for leukocyte esterase and given patient's urinary symptoms, will treat with antibiotics. Discussed findings with patient. Patient agrees to follow-up with Dr. Charles as scheduled for later this week. ED return precautions discussed with patient. Patient verbalized understanding. Medical records reviewed: Yes <Phyllis Dejesus DO - Last Filed: 06/07/24 07:56> Lab Data Labs: Lab Results 06/06/24 Range/Units 11:55 Urine RBC 0-1/hpf (0-5/HPF) Urine WBC 1-5/hpf (0-5/HPF) Ur Squamous Epith Cells 0-1 /hpf (0-5/HPF) Urine Bacteria Moderate (10-30) H (None) Urine Mucus 1+ H (Negative) Ur Culture Indicated? Specimen cultured Vol Urine Centrifuged 10ml (spun) Point of Care Testing Test Results Negative Urine Dip Bedside Urine Glucose Negative Bedside Urine Bilirubin + 1 Bedside Urine Ketone +++ 80 Urine Specific [place] 1.030 Bedside Urine Occult Blood - Negative Bedside Urine pH 6.0 Bedside Urine Protein + 30 Bedside Urine Leukocytes +/- 15 Esterase Discharge Plan Departure Patient Disposition: Home Clinical Impression: UTI (urinary tract infection) Qualifiers: Urinary tract infection type: acute cystitis Hematuria presence: with hematuria Qualified Code(s): N30.01 - Acute cystitis with hematuria Instructions: DI for Low Back Pain, DI for Urinary Tract Infection (UTI) Activity Restrictions/Additional Instructions: You were evaluated in the ED today for pelvic cramping and lower back pain. Your x-ray was normal without fractures or dislocations. Your urine was positive for a urinary tract infection for which you are being prescribed antibiotics. Please take those as prescribed. You were also being prescribed some pain and nausea medication. Please follow-up with Dr. Charles as scheduled for later in the week. Return to the ED if you have worsening symptoms. Prescriptions: New tramadol 50 mg tablet 50 mg PO Q8H PRN (Reason: pain) 3 Days Qty: 10 0RF ondansetron 4 mg tablet,disintegrating 4 mg PO Q8H PRN (Reason: nausea and vomiting) Qty: 10 0RF nitrofurantoin monohyd/m-cryst [Macrobid] 100 mg capsule 100 mg PO Q12H 5 Days Qty: 10 0RF Rx Instructions: must administer with a meal/food No Action Mirena 21 mcg/24 hours (8 yrs) 52 mg intrauterine device intrauterine naproxen 500 mg tablet 500 mg PO BID PRN (Reason: pain) Qty: 40 0RF nicotine [Nicoderm CQ] 7 mg/24 hr patch 24 hour 1 patch transdermal Q24H Qty: 14 1RF Referrals: Yasmin Hernandez DO [Primary Care Provider] - Stand Alone Forms: Patient Portal/API ED Sign-out <Phyllis Dejesus DO - Last Filed: 06/07/24 07:56> Cosign ED Attending Buddy Attestation: I was immediately available in the department for consultation.
--- NOTE | 2024-06-06 11:35 | DI.RAD.S_ITS ---
PROCEDURE: XR LUMBAR SPINE 2-3V INDICATIONS: low back pain TECHNIQUE: 3 views of the lumbar spine were acquired. COMPARISON: None. FINDINGS: Bones: 5 [id number] vertebrae are present. There is normal bony alignment. No vertebral body compression fractures. No suspicious bony lesions. Mild L4-L5 degenerative disc disease. Soft tissues: Overlying bowel gas pattern is normal. No suspicious soft tissue calcifications. IMPRESSION: No fracture. No acute osseous lesion. If symptoms and/or clinical suspicion for pathology persists, evaluation with CT or MRI should be considered for further assessment. Dictated by: Monica Bustamante MD, PhD on 06/06/2024 at 12:26 Approved by: Monica Bustamante MD, PhD on 06/06/2024 at 12:27
[2024-06-06] MEDS: KETOROLAC 30 MG/ML VIAL 15 MG IM (12:20)
[2024-06-06 12:53] LABS: Bacteria Urine Moderate (10-30); Culture Indicated Urine Specimen Cultured; Mucus Urine 1+ (Negative); RBC Urine 0-1/HPF (0-5/HPF); Squamous Epithelial Cell Urine 0-1 /HPF (0-5/HPF); Urine Volume 10mL (spun); WBC Urine 1-5/HPF (0-5/HPF)
[2024-06-06 13:36] VITALS: BP 127/93; PULSE 77; RESP 16; O2SAT 99
== END 2024-06-06 13:42 | disposition home or self-care (01) ==
PROVIDERS: Emergency Provider Student in an Organized Health Care Education/Training Program; PCP Family Medicine
DX: N39.0 Urinary tract infection, site not specified (principal); R20.2 Paresthesia of skin; Z87.42 Personal history of other diseases of the female genital tract; Z87.39 Personal history of other diseases of the musculoskeletal system and connective tissue
CPT/HCPCS: 72100; 81003; 81015; 81025; 87086; 96372; 99283; 99284; J1885

== ENCOUNTER → 2024-07-07 16:39 | Outpatient (CLI) | payer OTHER, SELFPAY ==
--- NOTE | 2024-07-07 16:40 | DI.MRI.S_ITS ---
PROCEDURE: MR LUMBAR SPINE WO CON INDICATIONS: LBP with sciatica of left side x 6 weeks TECHNIQUE: Noncontrast sagittal T1 spin echo and T2 fast echo, sagittal STIR, and T2 fast spin echo through the lumbar spine. In cases with scoliosis, additional coronal T2 fast spin echo may be performed. COMPARISON: None. FINDINGS: Image quality: Excellent. Alignment and Curvature: There is normal bony alignment. Bone Marrow: Marrow is of normal overall signal. No acute vertebral body compression fractures. Spinal Cord: Conus medullaris terminates at the L1 level. Visualized cord demonstrates normal signal and size. Paraspinous Soft Tissues: No paravertebral masses. T12-L1: Normal appearance. L1-L2: Normal appearance. L2-L3: Normal appearance. L3-L4: Normal appearance. L4-L5: Disc desiccation and mild height loss. Diffuse disc bulge. Facet arthropathy. Mild central canal stenosis. Moderate bilateral neural foraminal stenosis. L5-S1: Disc desiccation. Small central disc protrusion. Mild facet arthropathy. No significant central canal stenosis. Mild bilateral neural foraminal stenosis. IMPRESSION: 1. Degenerative changes of the lower lumbar spine as described above. 2. Mild central canal stenosis at L4-5. Moderate bilateral neural foraminal stenosis at L4-5. Dictated by: Varinder Mejia M.D. on 07/07/2024 at 20:12 Approved by: Varinder Mejia M.D. on 07/07/2024 at 20:14
== END ==
LOC: MRI 16:40
PROVIDERS: PCP Family Medicine; Referring Provider Physician Assistant; Visit Provider Physician Assistant
DX: M51.16 Intervertebral disc disorders with radiculopathy, lumbar region (principal); M51.17 Intervertebral disc disorders with radiculopathy, lumbosacral region; M48.07 Spinal stenosis, lumbosacral region; M48.061 Spinal stenosis, lumbar region without neurogenic claudication; M47.26 Other spondylosis with radiculopathy, lumbar region; M47.27 Other spondylosis with radiculopathy, lumbosacral region; M62.838 Other muscle spasm
CPT/HCPCS: 72148

== ENCOUNTER 2024-08-21 06:29 | Day surgery (SDC) | payer OTHER, SELFPAY ==
[2024-08-16 11:11] VITALS: BMI 34.2
[2024-08-21] VITALS (15 sets, daily range): BP systolic 120–152; BP diastolic 70–98; PULSE 74–113; RESP 12–17; TEMP 36.2–36.6; O2SAT 93–100; BMI 34.2
--- NOTE | 2024-08-21 | PATH_ITS ---
[facility] Accession Number: [id number] No. of containers..01 Tissue . 01 Material submitted: . uterus - UTERUS AND TUBES: NO CERVIX . 01 Diagnosis: UTERUS AND BILATERAL FALLOPIAN TUBES, SUPRACERVICAL HYSTERECTOMY AND BILATERAL SALPINGECTOMY: Inactive endometrium with pseudodecidualized stroma, consistent with progesterone effect. Unremarkable myometrium. Bilateral fimbriated fallopian tubes with benign paratubal cysts. No evidence of malignancy. [facility] 08/24/2024 1111 Local . 01 Electronically signed: . Dhara Mcdaniels MD, Pathologist NPI- [id number] . 01 Gross description: . Received in formalin with two patient identifiers and uterus and tubes, no cervix, is a disrupted supracervical hysterectomy (16 grams, 3.4 cm superior to inferior, 4.4 cm medial to lateral, 1.9 cm anterior to posterior) with a large presumed surgical serosal defect occupying the anterior, superior, and posterior of the specimen. The cervical stump margin is inked blue, with two unoriented fimbriated fallopian tubes (detached, 5.1 x 0.5 cm and 4.8 x 0.7 cm) and no cervix or additional adnexa. . The endometrium is allison and velvety and averages less than 0.1 cm thick with no lesions identified. The myometrium is allison and moderately trabecular with no lesions identified. . Both tubes have violaceous, smooth serosa with cystic structures ranging from 0.1 to 0.3 cm in greatest dimension, filled with cloudy serous fluid. The lumen are stellate and unremarkable. . Professional Bass Fisher sections are submitted as follows: A1: Cervical margin. A2: Endometrium. A3: Serosa. A4: Longer fallopian tube, bisected fimbriae, and cross sections. A5: [place] fallopian tube to include one-half of bisected fimbriae, and cross sections. ([id number]) /MRV 08/22/2024 [facility] Local . 01 Pathologist provided ICD-10: N93.9 . 01 CPT . 328259 Specimen Comment: A courtesy copy of this report has been sent to [facility] Pathology Performed at: [address] [address], [place], [place] [id number] MD Cipriano Durant MD Phone: [phone]
[2024-08-21] MEDS: LACTATED RINGERS 1,000 ML 42 ML IV (07:08)
[2024-08-21] MEDS: ACETAMINOPHEN 325 MG TABLET 975 MG PO (07:09)
[2024-08-21] MEDS: SCOPOLAMINE 1 PATCH TOP (07:09)
--- NOTE | 2024-08-21 07:20 | PM.GYNHP.1 ---
History of Present Illness History of Present Illness Reason for admission: pelvic pain Narrative: Jocelyn Sol is a 33 year old nulliparous female who presents for desired definitive surgical management of AUB with ultrasonographic features of adenomyosis and suspected endometriosis via planned laparoscopic supracervical hysterectomy with ovarian preservation. Patient previously extensively counseled in office regarding alternatives to definitive surgical management (see outpatient clinical documentation) and affirms desire to proceed with procedure today. Patient denies significant changes in personal or family health history since time of last office encounter 07/21/24 [facility] Medical History Painful menstrual periods Tobacco use disorder, mild, in early remission Impaired fasting glucose Family History Brother Age: 32 Type 1 diabetes Mother Age: 55 Type 1 diabetes Social History household members: spouse Smoking Status: Current every day smoker Meds Home Medications and Allergies Home Medications Medication Instructions Recorded Confirmed Type levonorgestrel 21 mcg/24 hr (up to intrauterine 12/29/22 07/21/24 History 8 years) 52 mg intrauterine device (Mirena) naproxen 500 mg tablet 500 mg PO BID PRN pain #40 tabs 12/01/23 08/21/24 Rx nicotine 7 mg/24 hr daily 1 patch transdermal Q24H #14 ea 12/31/23 08/21/24 Rx transdermal patch (Nicoderm CQ) ondansetron 4 mg disintegrating 4 mg PO Q8H PRN nausea and 06/06/24 08/21/24 Rx tablet vomiting #10 tabs tramadol 50 mg tablet 50 mg PO Q8H PRN Pain (Scale Score 06/09/24 08/21/24 History 4-6) cyclobenzaprine 10 mg tablet 5 - 10 mg (0.5 - 1 x 10 mg) PO 06/20/24 08/21/24 Rx BEDTIME PRN muscle spasm #14 tabs norethindrone acetate 1 mg-ethinyl 1 tab PO DAILY #63 tabs 08/01/24 08/21/24 Rx estradiol 20 mcg tablet (Loestrin) Allergies Allergy/AdvReac Type Severity Reaction Status Date / Time venom-honey bee Allergy Unknown Verified 08/21/24 06:44 [BEE VENOM (HONEY BEE)] oxycodone [OXYCODONE] AdvReac Intermediate syncope Verified 08/21/24 06:44 morphine [MORPHINE] AdvReac Mild gi upset Verified 08/21/24 06:44 Review of Systems Review of Systems ROS: Yes All systems reviewed with the patient and are negative except as otherwise documented Exam Vital Signs (past 8 hours): - 08/21/24 06:53 Temperature 97.4 F L Pulse Rate 98 H Respiratory Rate 17 Blood Pressure 152/98 H Pulse Oximetry 100 Oxygen Delivery Method Room Air Oxygen Delivery Method Room Air Const General: cooperative and comfortable Nutritional Appearance: overweight Resp Effort & Inspection: normal respiratory effort and able to speak in complete sentences Cardio Pulses: normal peripheral pulses Other: deferred Back/Spine/Pelvis Back: normal to inspection Skin General: no rashes or lesions noted Neuro General: patient alert, patient awake and patient oriented x3 Extrem General: normal to inspection Psych Mental Status: mental status grossly normal Judgment: judgment good Assessment & Plan Assessment and plan (1) Adenomyosis: Status: Acute (2) Painful menstrual periods: Status: Acute Plan proceed to OR as scheduled Time-Based Coding :: [TOTAL MINUTES] spent with patient and on the chart (including review of chart, obtaining history, exam, reviewing outside data, placing orders, documenting exam and treatment plan, and counseling patient) on [DATE].
--- NOTE | 2024-08-21 07:20 | PM.PREOP ---
Pre-operative Note Interval Note History & Physical reviewed/Exam performed by Physician: Yes Changes to H&P: No H&P completed within 30 days and has changed as indicated here:: 08/21/24 ASA Class (for procedural sedation): II
[2024-08-21] MEDS: CEFAZOLIN 2 GM/100 ML PREMIX 100 ML IV (07:37)
--- NOTE | 2024-08-21 07:47 | SUR.OPER ---
Lithotomy on padded OR bed. Reliance Pad Positioner under torso. Head on pillow, arms padded and tucked at sides. Legs secured in padded yellow fins stirrups. Upper body bairhugger in place.
[2024-08-21] MEDS: BUPIVACAINE 0.25% (PF) VIAL 30 ML INJ (08:14)
[2024-08-21] MEDS: fentaNYL 100 MCG/2 ML INJ IV (09:19)
[2024-08-21] MEDS: ONDANSETRON 4 MG/2 ML INJ IV (09:20)
[2024-08-21] MEDS: OXYCODONE IR 5 MG TABLET PO ×2 (09:20→10:02)
--- NOTE | 2024-08-21 09:30 | P.OP_ITS ---
Operative Date/Time/Diagnoses Date of procedure: 08/21/24 Time of procedure: 07:45 Pre-op diagnosis: AUB, suspected adenomyosis/endometriosis Post-op diagnosis: same Procedure & Clinicians Procedure: laparoscopic supracervical hysterectomy, bilateral salpingectomy without oophorectomy Same procedure as scheduled: Yes Indications: AUB, primary dysmenorrhea refractory to conservative medical management, desired definitive surgical management Surgeon: Ivonne Maurer Vessel Traffic Officer: Dania Zimmer Anesthesia Type: General Operative Notes Findings: normal external female genitalia, urethra, cevix, LNG-IUD in-situ intrauterine device in situ noted peritoneal windows within posterior cul-de-sac, lateral periotenal powder burn implants consistent with endometriosis normal appearing liver border, remainder intra-abdominal survey negative Closure Type: primary Specimen(s): other (uterus, bilateral fallopian tubes ) Estimated Blood Loss (mL): 5 Procedure in detail: The patient was taken to the operating room, placed on the operating table in the supine position and intubated with ETT.? The patient was then placed in the lithotomy position with her legs in Brijesh stirrups.? The patient was then examined under anesthesia with the above findings, then prepped and draped in a sterile fashion.? A bettencourt catheter was placed.? Time out was performed. A sterile speculum was inserted into the vagina.? The anterior cervix was grasped with single tooth tenaculum. The IUD strings were visible at the external os, grapsed with ring forceps and gentle traction the device was easily removed, visually inspected and noted to be intact. The uterus was sounded to 7. 5cm and the Zummi manipulator was placed in the standard fashion and the balloon was inflated.? Attention was then turned to the abdominal portion of the case. A 5mm incision was made infraumbilically and abdominal entry was achieved under direct visualization using the 5mm VisaPort trocar.? Abdomen was insufflated to 15mmHg.? Two lateral 5-mm ports were placed in a similar manner under direct vi sualization.? The uterus was anteverted and abdominal survey was noted with findings as noted above. The Powerseal was used to dissect bilateral fallopian tubes away from the mesosalpinx.? The utero-ovarian artery was burned and ligated followed by dissection of the round ligament with the Powerseal device.? This was repeated on the contralateral side.? The broad ligament was then further dissected on the left down to the level of the cervix. The uterine artery was visualized, burned and ligated. The same dissection was then completed on the contralateral side. With visible blanching of the uterus the Loop cautery was then passed via the L lateral port and under direct visualization the cervix was transected with amputation of the uterus. The spatula was then used for cauterization of the endocervical canal. All wound beds were inspected and noted to be hemostatic. A 5cm mini-laparotomy incision was made 2cm above the level of the pubic symphysis. The 12mm trocar was placed via this incision under direct visualization and the small endocatch bag was introduced. The specimen was placed into the bag under direct visualization and brought to the level of the incision. The abdomen was then desufflated and the specimen bag was withdrawn through the skin and grasped with a chuck. A small Kaleb device was placed. The uterus was grasped using chuck clamp and C-incision extracorporeal morcellation was performed with easy removal of the specimen. The endocatch bag was removed. The fascia of the incision was closed with 0-vicryl on a UR6 needle. The subcutaneous tissue was reapproximated with 3-0 vicryl followed by closure of skin with 4-0 monocryl and application of dermabond. The abdomen was then re-insufflated and all wound beds were once more visually inspected and noted to be hemostatic. 20cc of 0.25% rupivicaine was placed via laparoscopic trocar along the wound bed and posterior cul-de-sac. The patient then had her legs taken out of stirrups.? The patient tolerated the procedure well and without difficulty.? The patient was awakened from anesthesia and taken to PACU in stable condition. Complications: none Post-operative Condition: stable Disposition: PACU Plan for aftercare: pending clinical course, anticipate dc to home vs overnight observation
--- NOTE | 2024-08-21 10:41 | SUR.PHASEII ---
Pt. able to void in the bathroom. steady on feet.
== END 2024-08-21 10:40 | disposition home or self-care (01) ==
LOC: OR 06:29 → AC 06:30
PROVIDERS: PCP Family Medicine; Referring Provider Obstetrics & Gynecology; Visit Provider Obstetrics & Gynecology
PROC: 0UT94ZL Resection of Uterus, Supracervical, Percutaneous Endoscopic Approach (ICD-10-PCS; CPT 58542; principal; 2024-08-21 07:45)
DX: N93.8 Other specified abnormal uterine and vaginal bleeding (principal); Z97.5 Presence of (intrauterine) contraceptive device; N83.8 Other noninflammatory disorders of ovary, fallopian tube and broad ligament
CPT/HCPCS: 58542; J0330; J0690; J1100; J1171; J1885; J2250; J2405; J2704; J3010; J3490

== ENCOUNTER → 2024-09-21 08:10 | Outpatient (CLI) | payer OTHER, SELFPAY | PROVIDERS: PCP Family Medicine; Visit Provider Nurse Practitioner Family | DX: J02.9 Acute pharyngitis, unspecified (principal) | CPT/HCPCS: 87070 ==

== ENCOUNTER → 2024-09-22 10:11 | Outpatient (CLI) | payer OTHER, SELFPAY ==
[2024-09-22 11:31] LABS: Appearance Urine UA CLEAR; Bilirubin Urine UA NEGATIVE (NEGATIVE); Color Urine UA YELLOW; Glucose Urine UA NEGATIVE (Negative); Ketones Urine UA 1+ (NEGATIVE); Leukocyte Esterase Urine UA NEGATIVE (NEGATIVE); Nitrite Urine UA NEGATIVE (Negative); Occult Blood Urine UA NEGATIVE (Negative); Protein Urine UA NEGATIVE (Negative); Specific Gravity Urine UA 1.015 (1.000-1.035); Urobilinogen Urine UA 0.2 E.U./dL (0.2)
[2024-09-22 11:53] LABS: Bacteria Urine None Seen; Culture Indicated Urine Cult Not Indicated; RBC Urine None Seen (0-5/HPF); Squamous Epithelial Cell Urine 0-1 /HPF (0-5/HPF); Urine Volume 10mL (spun); WBC Urine None Seen (0-5/HPF)
== END ==
PROVIDERS: PCP Family Medicine; Referring Provider Obstetrics & Gynecology; Visit Provider Obstetrics & Gynecology
DX: R30.0 Dysuria (principal)
CPT/HCPCS: 81001

== ENCOUNTER → 2025-06-06 09:05 | Outpatient (CLI) | payer OTHER, SELFPAY ==
[2025-06-06 10:01] LABS: COVID-19 CEPHEID 4-PLEX PCR Negative (Negative); Influenza A - CEPHEID Flu A NEGATIVE (NEGATIVE); Influenza B - CEPHEID Flu B NEGATIVE (NEGATIVE)
== END ==
PROVIDERS: PCP Family Medicine; Visit Provider Nurse Practitioner Family
DX: R05.1 Acute cough (principal)
CPT/HCPCS: 87637

== ENCOUNTER → 2025-06-06 09:19 | Outpatient (CLI) | payer OTHER, SELFPAY ==
--- NOTE | 2025-06-06 09:20 | DI.RAD.S_ITS ---
PROCEDURE: XR CHEST 2V INDICATIONS: Cough TECHNIQUE: 2 views of the chest were acquired. COMPARISON: [facility], CR, XR CHEST 1V, 11/25/2023, 18:14. FINDINGS: Surgical changes and devices: None. Lungs and pleura: Lungs are clear. No pleural effusions or pneumothorax. Mediastinum: Mediastinal contours are normal. Heart size is normal. Bones and chest wall: No suspicious bony abnormalities. Soft tissues appear unremarkable. IMPRESSION: No acute cardiopulmonary abnormalities or focal consolidation. Dictated by: Morro Mera M.D. on 06/06/2025 at 15:42 Approved by: Morro Mera M.D. on 06/06/2025 at 15:42
== END ==
PROVIDERS: PCP Family Medicine; Referring Provider Nurse Practitioner Family; Visit Provider Nurse Practitioner Family
DX: R05.9 Cough, unspecified (principal); R05.1 Acute cough
CPT/HCPCS: 71046; 87637